=== PATIENT | male | born 1965 | race Caucasian/White ===

== ENCOUNTER 2016-06-03 05:53 | Observation (INO) | payer OTHER ==
[~2016-06-03] VITALS: Ht 190.5 cm; Wt 119.2 kg
[2016-06-03] VITALS (11 sets, daily range): BP systolic 126–178; BP diastolic 60–89; PULSE 71–89; RESP 14–21; O2SAT 94–99
[2016-06-03] MEDS: Sodium Chloride LOK Flush 10 mL Syringe IVFLUSH SCH ×2 (00:30→17:09)
[~2016-06-03 05:53] MED LIST: ATRV10T PO; NEBI10TA2 PO
[2016-06-03] MEDS ORDERED: Alum-Mag Hydrox-Simeth 30 mL Suspension PO ONE (06:15)
[2016-06-03] MEDS ORDERED: GUAI120L57 PO (06:16)
[2016-06-03] MEDS ORDERED: LEVO750T39 PO (06:16)
[2016-06-03] MEDS ORDERED: NEBI10TA2 PO (06:16)
[2016-06-03] MEDS ORDERED: Nitroglycerin 2% 1 Gm Ointment TOPICAL SCH (06:35)
[2016-06-03 06:40] LABS: BASOPHILS % (AUTO) 0.5 % (0-3); EOSINOPHILS % (AUTO) 2.9 % (0-5); MONOCYTES % (AUTO) 13.3 % (4-12); Mean Corpuscular Hemoglobin 27.6 pg (27.0-35.0); Mean Corpuscular Volume 84.9 fL (81-100); NEUTROPHILS % (AUTO) 61.1 % (40-74); Platelet Count 240 bil/L (150-400)
--- NOTE | 2016-06-03 06:55 | ED.REPORT ---
HPI-Chest Pain 40 and Over Date of Service Jun 03, 2016 ED Provider: Ayad Guajardo MD Pt is a 50 y/o male with a history of hypertension who presents to ED with his complaining of chest pain onset 2 am today. He described feeling like "his heart was beating through his chest" that progressed to a burning sensation in the center of his chest that radiated to the back. Associated symptoms include diaphoresis, lightheadedness, and fatigue with minimal exertion. The pain has gradually decreased since onset, currently rated as 3/10 in severity. Pt denies SOB, and swelling of the lower extremities. reports multiple similar episodes in the past, most recently while traveling in [place] last week. At that time the patient had decreased stamina, and became extremely dizzy and SOB while walking. Nursing Notes Stated Complaint: CHEST PAIN Chief Complaint: Chest Pain Nursing Notes Reviewed: Yes ([place], meds reconciled) Allergies: Coded Allergies: TORRES Inhibitors (Verified Allergy, Unknown, 06/03/16) hydrocodone (Verified Allergy, Unknown, 06/03/16) diazepam (Verified Adverse Reaction, Intermediate, severe cramping, ) Scheduled Albuterol HFA (Proair HFA) 8.5 Gm Hfa.aer.ad 2 PUFFS INHALATION Q4H Levofloxacin (Levofloxacin) 750 Mg Tablet 750 MG PO DAILY Nebivolol (Bystolic) 10 Mg Tablet 10 MG PO DAILY Miscellaneous Medications Guaifenesin/Codeine Phosphate (Codeine-Guaifen 10-100 mg/5 ml) 120 Ml Liquid 120 ML PO General Time Seen by MD: 06:03 Chief Complaint Chest pain Hx Obtained From: Patient, Spouse Arrived By: Walk-in Sudden in Onset?: Yes Onset Occurred: 5 - 8 hours ago Context of Onset: Sleeping Symptom Duration: Since onset Location: : Chest left: Chest right Quality: Burning Radiation: : Back Severity: Current: Mild Severity: Maximum: Moderate Associated with: Reports: Fatigue, Lightheaded, Nausea, Shortness of Breath, Denies: Vomiting Additional Notes: lighte-headedness on exertion Similar Sx Previous: Yes Risk Factors )( CAD Risk Stratification Risk factors reviewed Past Medical History Past Medical History HTN Sleep Apnea in past (now s/p surgery) Had been on cholesterol meds in past, but improved and now off Denies: Coronary artery disease, Diabetes mellitus Past Surgical History Tonsillectomy, uvulectomy, tongue reduction and soft palate reduction for sleep apnea Normal colonoscopy November 2015 Excision of a malignant melanoma Family History Grandmother w/CAD Smoking History Former Smoker (quit 14+ years ago) Social History Drug Use: Denies drug use Review of Systems Constitutional: Reports: Chills Respiratory: Denies: Non-productive cough, Shortness of breath Cardiovascular: Reports: Chest pain, Dyspnea on exertion GI: Reports: Nausea, Denies: Vomiting Musculoskeletal: Reports: Back pain, Denies: Extremity pain, Neck pain Skin: Reports Diaphoresis Neurologic: Reports: Lightheaded Complete sys rev & neg: except as marked. Physical Exam Initial Vital Signs Vital Signs (First) Date Time Temp Pulse Resp B/P Pulse Ox O2 Delivery O2 Flow Rate FiO2 06/03/16 06:04 36.6 89 18 178/89 99 Room Air Initial VS: Reviewed, Vital signs abnormal (HTN) Head / Eyes: Atraumatic, Normocephalic, PERRL ENT: Mucous membranes moist, Conjunctiva normal, No scleral icterus Neck: Supple, Non-tender, Full range of motion Back: No CVA tenderness Extremities: Vascular intact, Neuro intact, No swelling, No tenderness Skin: Warm, Dry, No cyanosis Neurologic: Alert, Oriented, Nonfocal Psychiatric: Mood/affect normal, Behavior normal, Normal thought content General/Constitutional: Awake, Alert, Cooperative Respiratory / Chest: Breath sounds NL, Breath sounds = bilat, No rales, No rhonchi, No wheezing, No stridor, No chest tenderness Cardiovascular: Heart rate NL, Regular rhythm, Heart sounds NL, No murmurs, Peripheral circulation NL, Pulses = bilaterally, No gross BP differential Abdomen: Soft, Non-tender, McBurney's non-tender, No guarding, No rebound, BS normoactive, No distention, No hernia, No palpable mass Interpretation & Diagnostics Lab Results Interpretation Result Diagram: 06/03/16 0602 06/03/16 0602 Test 06/03/16 06:02 White Blood Count 6.3th/mm3 (3.8-10.1) Red Blood Count 5.50mil/mm3 (4.40-5.80) Hemoglobin 15.2g/dL (13.8-17.2) Hematocrit 46.7% (41.0-50.0) Mean Corpuscular Volume 84.9fL (81-100) Mean Corpuscular Hemoglobin 27.6pg (27.0-35.0) Mean Corpuscular Hemoglobin Concent 32.5% (32.0-37.0) Red Cell Distribution Width 13.6% (12.3-15.4) Platelet Count 240bil/L (150-400) Neutrophils (%) (Auto) 61.1% (40-74) Lymphocytes (%) (Auto) 22.0% (14-46) Monocytes (%) (Auto) 13.3% (4-12) Eosinophils (%) (Auto) 2.9% (0-5) Basophils (%) (Auto) 0.5% (0-3) D-Dimer < 0.5mg/L (<0.50) Sodium Level 140mEq/L (134-144) Potassium Level 3.9mEq/L (3.5-5.2) Chloride Level 104mEq/L (97-108) Carbon Dioxide Level 25mmol/L (18-29) Blood Urea Nitrogen 14mg/dL (6-24) Creatinine 0.66mg/dL (0.76-1.27) Estimat Glomerular Filtration Rate 136mL/min (>59) Glucose Level 109mg/dL (60-99) Calcium Level 9.2mg/dL (8.5-10.1) Total Bilirubin 0.9mg/dL (0.0-1.2) Aspartate Amino Transf (AST/SGOT) 20U/L (0-50) Alanine Aminotransferase (ALT/SGPT) 27U/L (0-44) Alkaline Phosphatase 78U/L (25-150) Total Protein 7.3g/dL (6.4-8.4) Albumin 4.1g/dL (3.4-5.0) Lipase 11U/L (13-60) Thyroid Stimulating Hormone (TSH) 0.879uIU/mL (0.450-4.500) Hold Cedeño Top Tube Received (Received) Lab Results Interpretation: CBC normal CMP normal TSH normal Troponin #1 negative dimer negative ECG Interpretation ECG Interpretation: Sinus rhythm, rate 86 No acute ischemia No prior ECG available for comparison Time: 06:01 Interpreted by: ED physician ECG Interpretation: Sinus rhythm, rate 94 Probable left atrial enlargement Time: 07:13 Interpreted by: ED physician Atrium and Vent Size: Atrial enlargement - L X-Ray Chest Interpretation Chest Xray Interpretation: IMPRESSION: Probable bibasilar subsegmental atelectasis otherwise no definite acute cardiopulmonary process. Dictated by: Raymundo VARGAS Interpreted: Vidya Vu MD on 06/03/2016 at 9:26 Transcribed by: LESVIA on 06/03/2016 at 9:26 View: Portable, 1 view Re-Eval/Medical Decision Med Decision/Clinical Course This is a 50-year-old male without prior coronary artery disease, or history of dysrhythmia presents with complaints of chest discomfort, palpitations, and exertional shortness of breath. Patient reports that he developed severe chest discomfort and pressure, also since of palpitations, last night-that persisted till today. The palpitations have resolved but he still has chest discomfort. He notes that a couple days ago he was in [facility] and had similar symptoms that lasted several hours, but he wanted to 10 out of area hospital. His white notes a dramatic change in exercise tolerancein appropriately fatigue just walking around, and reports that is a sudden change-although he reports he is not having chest discomfort with exertion. History of present anxious, but otherwise has a normal exam. Initial EKG is normal. He has no dysrhythmic events. Starting lab work is normal. D-dimer is negative. Patient was still having mild symptoms and had a nitroglycerin administered with relief of symptoms. He was moderately hypertensive on arrival, had Nitropaste applied and a combination of the nitroglycerin and nitro paste the blood pressures improved. He has received aspirin. Overall the patient has a moderate risk story for CAD, now with exertional symptoms as well-and therefore a candidate for observation admission for serial enzymes and subsequent stress testing. Source of Hx: Old records Consultation : Referral / Consult Name: Troy Blackwood DO Consulted With: Hospitalist Call Returned at: 09:18 [employer]: Agrees with eval, Agrees with plan, Accepts admit Counseled Regarding: Diagnosis, Lab results, Need for admission Discharge & Departure Primary Impression: Chest pain Chest pain type: unspecified Qualified Code: R07.9 - Chest pain, unspecified Disposition: ADMITTED TO HOSPITAL Discharge Condition All VS Reviewed: Yes Condition: Stable Referrals: [facility] ([facility] Scribe Attestation Portions of this note were transcribed by Jorge Manjarrez and Kirk Ortiz. I, Dr. Guajardo personally performed the history, physical exam and medical decision -making; I reviewed and confirmed the accuracy of the information in the transcribed note. Signed by:Jorge Manjarrez and Kirk Ortiz, Meg, 06/03/16 and 10:31. copies to: [facility] Ayad Llamas MD Jun 03, 2016 06:55 Jorge Manjarrez Jun 03, 2016 07:05 KIRK ORTIZ Jun 03, 2016 07:54 Jorge Manjarrez Jun 03, 2016 07:05 KIRK ORTIZ Jun 03, 2016 07:54
[2016-06-03 06:58] LABS: TROPONIN T 0.01 ug/L (0.0-0.011)
[2016-06-03 07:10] LABS: Magnesium 2.1 mg/dL (1.6-2.6)
[2016-06-03] MEDS ORDERED: Alum-Mag Hydrox-Simeth 30 mL Suspension PO PRN ×2 (09:20→10:15)
[2016-06-03] MEDS ORDERED: Ondansetron 2 mg/mL 2 mL Inj IVPUSH PRN ×2 (09:20→10:15)
--- NOTE | 2016-06-03 09:26 | DRSVH ---
PROCEDURE: X-RAY CHEST ONE VIEW, PORTABLE ([id number]) INDICATIONS: IRREGULAR HEART BEAT TECHNIQUE: One view of the chest was acquired. COMPARISON: [facility], , CHEST 2VW, 01/08/2013, 8:52. FINDINGS: Surgical changes and devices: None. Lungs and pleura: No pleural effusions or pneumothorax. Lungs are clear, aside from mild presumed b asilar atelectasis. Mediastinum: Mediastinal contours appear normal. Heart size is normal. Bones and chest wall: No suspicious bony lesions. Overlying soft tissues appear unremarkable. IMPRESSION: Probable bibasilar subsegmental atelectasis otherwise no definite acute cardiopulmonary p rocess. Dictated by: Raymundo Mcneill RRA Interpreted: Vidya Vu MD on 06/03/2016 at 9:26 Transcribed by: LESVIA on 06/03/2016 at 9:26 Approved by: Vidya Vu M.D. on 06/03/2016 at 13:37
[2016-06-03] MEDS ORDERED: ALBU8.5H2 INHALATION (10:01)
[2016-06-03] MEDS ORDERED: Polyethylene Glycol (PEG) 17 Gm Powder PO PRN (10:15)
[2016-06-03] MEDS ORDERED: Senna-Docusate 8.6-50 mg Tablet PO PRN (10:15)
[2016-06-03 11:39] LABS: Creatine Kinase 72 U/L (21-232); Magnesium 2.1 mg/dL (1.6-2.6)
[2016-06-03] MEDS: 0.9% Sodium Chloride 1,000 ML IV SCH (11:59)
--- NOTE | 2016-06-03 14:13 | PCM.HPMED ---
Subjective Date of Service Jun 03, 2016 Primary Provider: Admitting Physician: Troy Blackwood DO Primary Care Physician: Macario Weiss Attending Physician: Troy Blackwood DO Admit Status: From the Emergency Department Chief Complaint: chest pain History of Present Illness: 50-year-old male with a significant history of hypertension presenting with chest pain that began early this morning, substernal that radiated to the back, not continuous, described as burning and associated palpitations. Associated symptoms include lightheadedness, sweating and decreasing excised tolerance with fatigue. notes that they frequently run 5K's last one being in April and recently came back from a vagus trip where he was visibly fatigue after [place] - which was not his baseline. At that time he noted shortness of breath and some dizziness with walking. He has been on antibiotics for an upper refer tract infection last couple weeks recent change to Levaquin which she believes at this time his cough has improved. Chest x-ray did not indicate any evidence of pneumonia in the ER. He does have a history of seasonal allergies and reactive airway disease for which she has a albuterol inhaler and uses it rarely at home, but worse shortness of breath/ asthma symptoms with URI illness. Review of Systems: Review of systems are unremarkable except as listed in history of present illness Allergies Coded Allergies: TORRES Inhibitors (Verified Allergy, Unknown, 06/03/16) hydrocodone (Verified Allergy, Unknown, 06/03/16) diazepam (Verified Adverse Reaction, Intermediate, severe cramping, ) Home Medications Bystolic 10 mg Levaquin PMH Hypertension Seasonal allergies Allergic asthma Surgical History Noncontributory Family History Maternal grandmother with valvular heart disease No family history coronary artery disease or diabetes Family history hypertension Social History Hx Alcohol Use: Yes (1 x per week) Hx Substance Use: No Smoking Status: Former Smoker (quit 14+ years ago) Years of Smokin Exam Vital Signs Vital Sign - Last Date Time Temp Pulse Resp B/P Pulse Ox O2 Delivery O2 Flow Rate FiO2 06/03/16 11:50 80 06/03/16 10:08 36.2 21 126/80 95 Room Air Exam Gen.: No acute distress, alert and oriented, pleasant HEENT: Normocephalic/atraumatic, pupils equal round react to light and accommodation,EOMI, Anicteric sclera, No mucosal ulcerations Neck: No JVD, lymphadenopathy, no thyromegaly Cardiovascular: No rubs clicks murmurs or gallops, regular rate Respiratory: Clear to auscultation bilaterally no wheezes rales or rhonchi, good historian effort GI: Soft, nontender to palpation no masses no hepatosplenomegaly noted no peritoneal signs or rebound tenderness. Extremities: No clubbing cyanosis or edema, warm, sensation intact Neurologic, muscle strength 5 out of 5 in upper and lower extremities bilaterally, creatinine nerves II-12 grossly intact, DTRs Psych: Mood appropriate, affect appropriate, no tangential thought or speech Lab and Diagnostics Labs Troponin negative 1 Result Diagram: 06/03/1660106/03/16601 12-lead ECG Sinus rhythm with no acute ischemic changes, normal axis normal intervals. Cardiac Echo Impressions Nuclear stress pending Assessment & Plan 50-year-old male with significant history of hypertension presenting with chest pain, admitted to rule out ACS Chest pain, possibly secondary to URI, possibly viral given lack of response this weeks of antibiotics and no evidence of pneumonia on chest x-ray. Present on admission, no active chest pain now. - Given risk factors of age and hypertension will rule out cardiac etiology - If recurrent chest pain with radiation to back, ordered CT angiogram, echo ordered now - Flu swab -Trend cardiac markers -Repeat EKG, and when necessary EKG with chest pain -Morphine and nitroglycerin as needed for chest pain -Give Bystolic today, plan for nuclear stress tomorrow, nothing by mouth 4 hours prior to nuclear stress testing Hypertension -Cardiac diet -Continue home regimen of Bystolic as above Pain Evaluation: Adequate Pain Control GI Prophylaxis: Proton Pump Inhibitor VTE Prophylaxis: Sub-Q Enoxaparin Resuscitation Status: CPR: Attempt Resuscitation Time spent 45 minutes spent with evaluation management, greater than 50% time spent face-to -face counseling Attending Statement Likely with discharge of ruled out tomorrow after nuclear stress test Troy Blackwood DO Jun 03, 2016 14:13
[2016-06-03] MEDS ORDERED: Pantoprazole 4 mg/mL 10 mL Inj IVPUSH ONE (14:15)
[2016-06-03 15:30] LABS: Creatine Kinase 68 U/L (21-232)
[2016-06-03 15:33] LABS: TROPONIN T < 0.010 ug/L (0.0-0.011)
--- NOTE | 2016-06-03 17:25 | DRSVH ---
[facility] [address] [place] [address] Echocardiogram Report Name: MICHEL VERDE Date: 06/03/2016 Height: 75 in Hospital Exam Location: [facility] Weight: 261 lb Gender: Male BSA: 2.5 m2 : 1965 Age: 50 yrs BP: 126/80 mmHg Reason For Study: CHEST PAIN Ordering Physician: Performed By: Perez Caceres Referring Physician: ZUNILDA PHIPPS Interpretation Summary 1) Normal left ventricular thickness, size, wall motion, and systolic function (EF 60-65%). 2) Normal right ventricular size and function. 3) No significant valvular abnormalities. 4) Compared to the Echo done 10/17/2008, no significant change. Procedure: A two-dimensional transthoracic echocardiogram with color flow and Doppler was performed. The study quality was technically adequate. A contrast injection of Definity was performed to improve assessment of LV function. Comparison is made with the echocardiogram of 10/17/08. The patient was in normal sinus rhythm during the exam. Left Ventricle: The left ventricle is normal in size. There is mild concentric left ventricular hypertrophy. The ejection fraction is estimated to be 60-65%. Left ventricular systolic function is normal without focal wall motion abnormalities. Diastolic function could not be accurately assessed due to contradictory data. Right Ventricle: The right ventricle is normal in size and function. Atria: The left atrial size is normal. The right atrium grossly appears normal in size. Mitral Valve: The mitral valve is normal. There is no mitral regurgitation noted. Aortic Valve: The aortic valve is grossly normal. There is no aortic valve stenosis. No aortic regurgitation is present. Tricuspid Valve: The tricuspid valve is normal. Pulmonary artery pressures cannot be estimated because of the lack of a measurable TR jet velocity. Pulmonic Valve: The pulmonic valve leaflets are thin and pliable; valve motion is normal. There is a trace or physiologic amount of pulmonic regurgitation. Great Vessels: The aortic root is normal size. The dimensions of the ascending aorta are normal. The pulmonary artery is normal size. The inferior vena cava was not well visualized. Pericardium/ Pleura There is no pericardial effusion. There is no pleural effusion. MMode/2D Measurements & Calculations LVIDd: 4.9 cm LVOT diam: 2.4 cm EDV(MOD-sp2) LVIDs: 3.1 cm LA A2 area: 20.3 cm AoV Openin.2 cm : 109.4 ml FS: 36.2 % LA A4 area: 23.8 cm Ao root diam: 3.7 cm EPSS: 0.35 cm LA length (vol) asc Aorta Diam IVSd: 1.2 cm LVPWd: 1.1 cm LA vol: 65.1 ml Ao Arch Diam LA vol index (Proximal trans.) : 26.5 ml/m2 LV jacobo. diameter/BSALV sys. diameter/BSA TAPSE: 2.3 cm (cm/m^2): 2.0 (cm/m^2): 1.3 Doppler Measurements & Calculations Ao V2 max: 137.1 cm/secMV E max olman MV E/A: 1.2 PA V2 max Ao max P.5 mmHg : 81.1 cm/sec Med Peak E' Olman : 106.1 cm/sec Ao mean P.5 mmHg MV A max olman PA mean PG LVOT Max Olman : 69.9 cm/sec E/E' med: 17.9 : 2.0 mmHg : 109.7 cm/sec Lat Peak E' Olman SOHA(I,D): 3.8 cm E/E' lat: 18.8 sev ratio: 0.88 Pulm A Revs Dur MV dec time: 0.19 sec Ao V2 mean LV V1 max PG PA V2 mean : 86.2 cm/sec : 64.5 cm/sec Ao V2 VTI LV V1 VTI: 21.2 cmPA pr(Accel) : 43.2 mmHg SOHA(V,D): 3.5 cm2 SOHA indexed to BSA E/e' average (cm^2/m^2): 1.6 : 18.4 Reading Physician:05:17 PM
[2016-06-03] MEDS ORDERED: [UNRECOGNIZED DRUG - CODE] PO (17:58)
[2016-06-03] MEDS ORDERED: ALBU2.5V4 INH (17:58)
[2016-06-03] MEDS ORDERED: LEVO500T79 PO (17:58)
[2016-06-03 18:14] LABS: APPEARANCE,URINE CLEAR (CLEAR,HAZY); COLOR,URINE YELLOW (YELLOW); OCCULT BLOOD,URINE NEGATIVE (NEGATIVE); UROBILINOGEN,URINE NORMAL (NORMAL)
[2016-06-03] MEDS: BYSTOLIC 10 MG PO SCH (18:30)
--- NOTE | 2016-06-03 19:23 | NUR ---
Admit note Patient a/o x 4, no c/o chest pain, nausea or sob, but has occasional cough. Lungs clear bilat. Patient oob amb indep in room and harper, steady gait. See vitals, tele SR. Home meds started tonight after pharmacy verification. Patient updated on poc. Echo done this evening, U/A sent and plan for MIBI in a.m.
[2016-06-04] MEDS: 0.9% Sodium Chloride 1,000 ML IV SCH (00:02)
[2016-06-04 00:29] VITALS: BP 155/82; PULSE 63; RESP 17; O2SAT 97
[2016-06-04 00:30] VITALS: BP 155/82; PULSE 63; RESP 17; O2SAT 97
--- NOTE | 2016-06-04 05:12 | NUR ---
Patient denies chest pain, shortness of breath, and resp distress. Nitro patch removed and NPO began at midnight for Stress Test in the AM. The pt appears to be sleeping at this time.
[2016-06-04 05:49] LABS: BASOPHILS % (AUTO) 0.6 % (0-3); EOSINOPHILS % (AUTO) 3.4 % (0-5); MONOCYTES % (AUTO) 12.7 % (4-12); Mean Corpuscular Hemoglobin 27.7 pg (27.0-35.0); Mean Corpuscular Volume 86.6 fL (81-100); NEUTROPHILS % (AUTO) 57.1 % (40-74); Platelet Count 219 bil/L (150-400)
[2016-06-04 05:56] VITALS: BP 165/92; PULSE 59; RESP 17; O2SAT 94
--- NOTE | 2016-06-04 07:29 | NUR ---
Stress test Pt. transferred to Nuclear Med Dept in a for stress test at 0725. [employer] was notified. Addendum: 06/04/16 at 0953 by MARIBEL SHELLEY RN Pt. returned to [facility] around 0935. Telemetry resumed.
[2016-06-04] MEDS: Sodium Chloride LOK Flush 10 mL Syringe IVFLUSH SCH (10:03)
[2016-06-04] MEDS: BYSTOLIC 10 MG PO SCH (10:03)
[2016-06-04 10:37] VITALS: BP 152/87; PULSE 78; RESP 16; O2SAT 95
--- NOTE | 2016-06-04 13:08 | DRSVH ---
PROCEDURE: 1 DAY TREADMILL STRESS TEST Rest and exercise myocardial perfusion SPECT with gated imaging and ejection fraction RADIOPHARMACEUTICAL: 9.31 mCi Tc-99m tetrafosmin IV at rest and 31.3 mCi Tc-99m tetrafosmin IV at pe ak exercise. [id number]-[id number] was performed. INDICATIONS: CHEST PAIN TECHNIQUE: Radiopharmaceutical was injected at peak stress test, and also at rest. SPECT images wer e obtained. SPECT myocardial perfusion images were displayed in short axis, horizontal long axis, an d vertical long axis views. Gated images were reviewed using Auto[employer]ANT software. COMPARISON: None. CARDIAC STRESS: A standard Joseph treadmill exercise tolerance test was performed by the patient under the supervision of an attending staff. The patient exercised for 10 minutes and 47 seconds; functional aerobic impa irment (CONNIE) is -2%. Hemodynamic data: Patient has hypertension at rest (BP 150/86) and blood pressure ivon to 200/84 wit h exercise. Patient achieved 86% of maximum predicted heart rate at peak exercise. Symptoms: Patient denied chest pain during exercise. EKG: No diagnostic EKG changes of ischemia; rare ventricular ectopy during recovery. FINDINGS: Raw data: There is good myocardial labeling by radiotracer. No significant motion artifacts. Left ventricle function: Gated images demonstrate normal left ventricle wall thickening. No segment al wall motion abnormality. No transient ischemic dilation. The left ventricle resting end-diastolic volume is 124 mL. Left ventricle stress ejection fraction is 74%; normal values are above 45%. Myocardial perfusion: There is normal distribution of activity in the left and right ventricular karen cardium. No fixed or reversible perfusion defects. IMPRESSION: Normal low risk treadmill nuclear stress study. Hypertension noted during the study. 1) Normal perfusion study with no evidence of ischemia or infarction. 2) Normal left ventricular size, wall motion, and systolic function (EF 74%), 3) No ECG evidence of ischemia. 4) No angina or angina equivalent symptoms with exercise. 5) Average exercise capacity (12.8 METs, CONNIE -2%). Target heart rate achieved. 6) Mild hypertension present at rest (BP 150/86) and mildly hypertensive response to exercise (maximu m BP 200/84). Recommend optimal blood pressure management. 7) No prior nuclear stress test available for comparison. Dictated by: Ted Kennedy M.D. on 06/04/2016 at 13:06 Approved by: Ted Kennedy M.D. on 06/04/2016 at 13:06
--- NOTE | 2016-06-04 13:25 | PCM.DIMED ---
Discharge Instructions Date of Service Jun 04, 2016 Dates of Hospitalization Jun 03, 2016 at 09:09 Discharge Diagnosis Discharge Diagnosis Chest Pain Diet Heart Healthy Activity No restrictions (May resume usual activities gradually as tolerated) Call your provider Fever or Chills, Shortness of breath, Bleeding, Chest pain, Vomitting, Excessive diarrhea, Weakness (unilateral), Other Patient Instructions Follow-up Provider: [facility] Follow-up with PCP in: 1 week Jared Henriquez MD Jun 04, 2016 13:25
[2016-06-04] MEDS ORDERED: NITR0.4T SL (13:30)
[2016-06-04] MEDS ORDERED: ASPI81TA3 PO (13:30)
--- NOTE | 2016-06-04 15:19 | NUR ---
Social Work Discharge and Screen Note: Order for discharge acknowledged. Patient is a 50 year old male admitted under observation status on 06/03/16 for chest pain. Patient payer as . Patient resides in [place] with and states being independent with needs. Patient to provide support and care and to provide transport home. Patient states pharmacy of choice as [facility] in [place]. No other identified discharge needs at this time. PLAN: Home with , pending clinical course. No needs Rosa DIAZ
--- NOTE | 2016-06-05 00:48 | PCM.DC.MED ---
Discharge Summary Date of Service Jun 04, 2016 Dates of Hospitalization Date of Hospital Admission Jun 03, 2016 at 09:09 Date of Discharge: Jun 04, 2016 Providers: Admitting Physician: Troy Blackwood DO Primary Care Physician: Macario Weiss Attending Physician: Troy Blackwood DO Diagnosis at Time of Discharge Diagnosis at Time of Discharge Chest Pain Procedures XRay, CTs & MRIs PROCEDURE: X-RAY CHEST ONE VIEW, PORTABLE ([id number]) INDICATIONS: IRREGULAR HEART BEAT TECHNIQUE: One view of the chest was acquired. COMPARISON: [facility], , CHEST 2VW, 01/08/2013, 8:52. FINDINGS: Surgical changes and devices: None. Lungs and pleura: No pleural effusions or pneumothorax. Lungs are clear, aside from mild presumed basilar atelectasis. Mediastinum: Mediastinal contours appear normal. Heart size is normal. Bones and chest wall: No suspicious bony lesions. Overlying soft tissues appear unremarkable. IMPRESSION: Probable bibasilar subsegmental atelectasis otherwise no definite acute cardiopulmonary process. Dictated by: Raymundo Mcneill [facility] Interpreted: Vidya Vu MD on 06/03/2016 at 9:26 Transcribed by: LESVIA on 06/03/2016 at 9:26 Approved by: Vidya Vu M.D. on 06/03/2016 at 13:37 ECG 12 Lead Sinus rhythm with no acute ischemic changes, normal axis normal intervals. Cardiac Echo Impression Nuclear stress pending Other Diagnostics PROCEDURE: 1 DAY TREADMILL STRESS TEST Rest and exercise myocardial perfusion SPECT with gated imaging and ejection fraction RADIOPHARMACEUTICAL: 9.31 mCi Tc-99m tetrafosmin IV at rest and 31.3 mCi Tc- 99m tetrafosmin IV at peak exercise. Auh-itw-aflyashh was performed. INDICATIONS: CHEST PAIN TECHNIQUE: Radiopharmaceutical was injected at peak stress test, and also at rest. SPECT images were obtained. SPECT myocardial perfusion images were displayed in short axis, horizontal long axis, and vertical long axis views. Gated images were reviewed using [employer] software. COMPARISON: None. CARDIAC STRESS: A standard Joseph treadmill exercise tolerance test was performed by the patient under the supervision of an attending staff. The patient exercised for 10 minutes and 47 seconds; functional aerobic impairment (CONNIE) is -2%. Hemodynamic data: Patient has hypertension at rest (BP 150/86) and blood pressure ivon to 200/84 with exercise. Patient achieved 86% of maximum predicted heart rate at peak exercise. Symptoms: Patient denied chest pain during exercise. EKG: No diagnostic EKG changes of ischemia; rare ventricular ectopy during recovery. FINDINGS: Raw data: There is good myocardial labeling by radiotracer. No significant motion artifacts. Left ventricle function: Gated images demonstrate normal left ventricle wall thickening. No segmental wall motion abnormality. No transient ischemic dilation. The left ventricle resting end-diastolic volume is 124 mL. Left ventricle stress ejection fraction is 74%; normal values are above 45%. Myocardial perfusion: There is normal distribution of activity in the left and right ventricular myocardium. No fixed or reversible perfusion defects. IMPRESSION: Normal low risk treadmill nuclear stress study. Hypertension noted during the study. 1) Normal perfusion study with no evidence of ischemia or infarction. 2) Normal left ventricular size, wall motion, and systolic function (EF 74%), 3) No ECG evidence of ischemia. 4) No angina or angina equivalent symptoms with exercise. 5) Average exercise capacity (12.8 METs, CONNIE -2%). Target heart rate achieved. 6) Mild hypertension present at rest (BP 150/86) and mildly hypertensive response to exercise (maximum BP 200/84). Recommend optimal blood pressure management. 7) No prior nuclear stress test available for comparison. Dictated by: Ted Kennedy M.D. on 06/04/2016 at 13:06 Approved by: Ted Kennedy M.D. on 06/04/2016 at 13:06 Brief History 50-year-old male with a significant history of hypertension presenting with chest pain that began early this morning, substernal that radiated to the back, not continuous, described as burning and associated palpitations. Associated symptoms include lightheadedness, sweating and decreasing excised tolerance with fatigue. notes that they frequently run 5K's last one being in April and recently came back from a vagus trip where he was visibly fatigue after [place] - which was not his baseline. At that time he noted shortness of breath and some dizziness with walking. He has been on antibiotics for an upper refer tract infection last couple weeks recent change to Levaquin which she believes at this time his cough has improved. Chest x-ray did not indicate any evidence of pneumonia in the ER. He does have a history of seasonal allergies and reactive airway disease for which she has a albuterol inhaler and uses it rarely at home, but worse shortness of breath/ asthma symptoms with URI illness. She was admitted to the hospital service for further evaluation and treatment. Hospital Course 50-year-old male with significant history of hypertension presenting with chest pain, admitted to rule out ACS Chest pain, possibly secondary to URI, possibly viral given lack of response this weeks of antibiotics and no evidence of pneumonia on chest x-ray. Patient declined respiratory virus PCR analysis today. Present on admission, no active chest pain now. - Given risk factors of age and hypertension will rule out cardiac etiology - If recurrent chest pain with radiation to back, ordered CT angiogram, echo ordered now - Flu swab. Patient declined respiratory virus PCR testing today. -Trended cardiac markers are all negative -Repeat EKG, and when necessary EKG with chest pain -Morphine and nitroglycerin as needed for chest pain -Give Bystolic today, plan for nuclear stress tomorrow, nothing by mouth 4 hours prior to nuclear stress testing -Stress test fails to reveal the source of the chest pain. Hypertension -Cardiac diet -Continue home regimen of Bystolic as above Disposition: We will discharge home today to follow up with his primary care physician. Patient may need adjustment in his blood pressure medication. Exam Vital Signs (Last) Date Time Temp Pulse Resp B/P Pulse Ox O2 Delivery O2 Flow Rate FiO2 06/04/16 10:37 36.6 78 16 152/87 95 Room Air Exam General: Patient is in no distress. Is resting comfortably in bed in good spirits. HEENT: Head is atraumatic normocephalic. Eyes: Pupils are equally round and reactive to light and accommodation. Extraocular muscles are intact. Sclera are white anicteric. Subconjunctival mucosa is pink. Ears and nose are unremarkable. Oropharynx: There is no mucosal lesions, there is no thrush, there is no pharyngitis. Neck: Is supple, there are no nodes, or masses or tenderness. Chest: Is clear to auscultation and percussion. There are no rales, rhonchi, wheezes or rubs. Heart: Rate rhythm is regular. There is no murmur, rub or gallop. Abdomen: Good bowel sounds are present. Abdomen is soft, nontender, no organomegaly or masses were appreciated. Extremities: Are symmetrical and well perfused. There is no edema, there is no cellulitis, no rash. Neurologic: There are no focal neurological deficits. Cranial nerves II through XII are intact. There are no sensory or motor deficits. Psychiatric: Patients mood is calm and shows no sign of agitation. Genital: Deferred Rectal: Deferred Test 06/03/16 06:02 06/03/16 10:30 06/03/16 14:30 06/03/16 17:42 D-Dimer < 0.5mg/L (<0.50) Hemoglobin A1c 6.0% (4.8-5.6) Total Bilirubin 0.9mg/dL (0.0-1.2) Aspartate Amino Transf (AST/SGOT) 20U/L (0-50) Alanine Aminotransferase (ALT/SGPT) 27U/L (0-44) Alkaline Phosphatase 78U/L (25-150) Total Protein 7.3g/dL (6.4-8.4) Albumin 4.1g/dL (3.4-5.0) Lipase 11U/L (13-60) Thyroid Stimulating Hormone (TSH) 0.879uIU/mL (0.450-4.500) Hold Cedeño Top Tube Received (Received) Magnesium Level 2.1mg/dL (1.6-2.6) Total Creatine Kinase 68U/L (21-232) Creatine Kinase MB 1.5ng/mL (0.0-10.4) Creatine Kinase MB % 2.2% (0.0-5.0) Urine Color Yellow (YELLOW) Urine Appearance Clear (CLEAR,HAZY) Urine pH 7.0 (5.0-8.0) Urine Specific [employer] [place] 1.010 (1.003-1.035) Urine Protein Negativemg/dL (NEG,TRACE) Urine Glucose (UA) Negativemg/dL (NEGATIVE) Urine Ketones Negativemg/dL (NEGATIVE) Urine Occult Blood Negative (NEGATIVE) Urine Nitrite Negative (NEGATIVE) Urine Bilirubin Negative (NEGATIVE) Urine Urobilinogen Normalmg/dL (NORMAL) Urine Leukocyte Esterase Negative (NEGATIVE) Urine RBC 0-2/hpf (0-2) Urine WBC 0-5/hpf (0-5) Urine Epithelial Cells None/hpf (NONE-MOD) Urine Crystals None seen (NONE SEEN) Urine Bacteria None/hpf (NONE-FEW) Urine Hyaline Casts None/lpf (NONE) Urine Granular Casts None seen (NONE SEEN) Urine Waxy Casts None seen (NONE SEEN) Urine Red Blood Cell Casts None seen (NONE SEEN) Urine White Blood Cell Casts None seen (NONE SEEN) Urine Mucus None seen (None Seen) Urine Trichomonas None seen (NONE SEEN) Urine Yeast None (NONE SEEN) Urinalysis Comment None Urine Culture Reflexed Not indicated Test 06/03/16 19:45 06/04/16 04:58 Troponin T < 0.010ug/L (0.0-0.011) White Blood Count 6.4th/mm3 (3.8-10.1) Red Blood Count 4.94mil/mm3 (4.40-5.80) Hemoglobin 13.7g/dL (13.8-17.2) Hematocrit 42.8% (41.0-50.0) Mean Corpuscular Volume 86.6fL (81-100) Mean Corpuscular Hemoglobin 27.7pg (27.0-35.0) Mean Corpuscular Hemoglobin Concent 32.0% (32.0-37.0) Red Cell Distribution Width 13.9% (12.3-15.4) Platelet Count 219bil/L (150-400) Neutrophils (%) (Auto) 57.1% (40-74) Lymphocytes (%) (Auto) 25.9% (14-46) Monocytes (%) (Auto) 12.7% (4-12) Eosinophils (%) (Auto) 3.4% (0-5) Basophils (%) (Auto) 0.6% (0-3) Sodium Level 142mEq/L (134-144) Potassium Level 4.5mEq/L (3.5-5.2) Chloride Level 107mEq/L (97-108) Carbon Dioxide Level 27mmol/L (18-29) Blood Urea Nitrogen 11mg/dL (6-24) Creatinine 0.72mg/dL (0.76-1.27) Estimat Glomerular Filtration Rate 123mL/min (>59) Glucose Level 97mg/dL (60-99) Calcium Level 8.9mg/dL (8.5-10.1) Triglycerides Level 100mg/dL (0-149) Cholesterol Level 201mg/dL (100-199) LDL Cholesterol, Calculated 139.000mg/dL (0-99) VLDL Cholesterol 20.000mg/dL HDL Cholesterol 42mg/dL (>39) Cholesterol/HDL Ratio 4.79 (0.0-4.4) Microbiology Results Name: MICHEL VERDE Age/Sex: 50/M Attend Dr: Troy Blackwood DO Acct: [id number] Unit: [id number] Status: ADM Snowden Location: [facility] [place] 1006-1 Re06/03/16 Disch: Specimen: [id number] Collected: 06/03/16 Status: VALDO Req#: [id number] Received: 06/03/16 Source: CATHERINE Sp Desc : VTM Subm Dr: Troy Blackwood DO Ordered: RAPID FLU IRS Comments: Collected by Nurse/Unit? Y/N Y Procedure Result Verified Site Microbiology [facility] INFLUENZA RAPID AG SCREEN Final 06/03/16-163 RESULT NEGATIVE FOR INFLUENZA TYPE A AND B This rapid assay is a screen test only for Influenza A&B and does not definitively rule out the presence of FLU A & B or other respiratory viral pathogens. The assay's sensitivity varies on the specimen type submitted. Nasal washes are optimum. Recommend respiratory viral cultures and DFA to confirm negative screens and rule out other viral pathogens. Per CDC, the sensitivity of this method is approximately 50% for H1N1. A negative result does NOT rule out Novel H1N1 (Swine Flu) Discharge Medications Discharge Medications Albuterol HFA (Proair HFA) 8.5 Gm Hfa.aer.ad 2 PUFFS INHALATION Q4H (Reported) Aspirin Chew (Aspirin Chew) 81 Mg Chew 81 MG PO DAILY Prescribed by: LENI HENRIQUEZ MD Levofloxacin (Levofloxacin) 500 Mg Tablet 750 MG PO daily x 10 days (Reported) Nebivolol (Bystolic) 10 Mg Tablet 10 MG PO DAILY (Reported) As needed Albuterol Neb Soln (Albuterol Neb Soln) 2.5 Mg/3 Ml Vial.neb 3 ML INH q4 hours PRN PRN For Shortness of Breath (Reported) Guaifenesin/Codeine Phosphate (Guaifenesin-Codeine Syrup) 118 Ml Liquid 10 ML PO q6 hours PRN PRN For Cough (Reported) Nitroglycerin SL (Nitrostat) 0.4 Mg Tab.subl 0.4 MG SL Q5MIN PRN PRN For Chest Pain Prescribed by: LENI HENRIQUEZ MD Followup Plan Disposition: Patient being discharged home in the care of his . Discharge Diet: Heart Healthy Discharge Activity: No restrictions (May resume usual activities gradually as tolerated) Follow-up Provider: [facility] Follow-up with PCP in: 1 week Time spent Time spent on discharging this patient was greater than 35 minutes, over half of which was involved in counseling and coordination of care. Jared Henriquez MD Jun 05, 2016 00:47
== END 2016-06-04 14:20 | disposition home or self-care (01) ==
LOC: SED 05:53 → OSC 09:09
PROVIDERS: ADMIT Internal Medicine; ATTEND Internal Medicine
DX: R07.9 Chest pain, unspecified (principal); I10 Essential (primary) hypertension; J06.9 Acute upper respiratory infection, unspecified; J45.909 Unspecified asthma, uncomplicated
CPT/HCPCS: 36415; 71010; 78452; 80048; 80053; 80061; 81000; 82550; 82553; 83036; 83690; 83735; 84443; 84484; 85025; 85379; 87804; 93005; 93017; A9502; C8929; G0378; J1650; J7030; Q9957